=== PATIENT | male | born 1955 | race Hispanic/Latino ===

== ENCOUNTER 2019-09-27 09:30 | Outpatient (RCR) | payer OTHER, SELFPAY ==
--- NOTE | 2019-06-29 13:56 | PTOPEVAL ---
PHYSICAL THERAPY EVALUATION AND PLAN OF CARE Thank you for referring this patient to [facility]. Chente will be scheduled 2x/week for 4 weeks. Please review, sign, date and return this plan of care NIRANJAN. I agree with and certify that the following plan of care is medically necessary. 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 His daughter is translating for him. He did inpatient rehab for 1 month, then started outpatient therapy in 10/2018 at [facility]. They are no longer taking his insurance; therefore, he has come to see us. He has increased tone in RUE/LE and uses a brace at home to stretch the knee and gastroc. He states that his right LE is numb all the way down. Prior Level of Function Activity Level (Last 3 Months) Hand Dominance Right Activity of Daily Living Ability Needs Some Help Indoor/Home Mobility Independent Community Mobility Needs Some Help Stairs Ability Needs Some Help Medications Home Meds (Include: OTC, RX, Vitamins, oxycodone; blood thinner Herbals, Dose, Route,and Frequency) Query Text:Home Med Entries Will No Longer Recall From Past Visits. Home Meds Must Be Re-entered With Each Visit. Home Setting Home Type House Environmental Barriers Railing, Bilateral,Stairs, 2-4 Mobility Assistive Devices (Used Last 3 Cane, Small Based Quad Months) Pain Assessment Timing of Pain Assessment 0/10 in LE Hip Strength Right Hip Flexion Strength 2+ Poor + Hip Extension Strength 3 Fair Hip Abduction Strength 3- Fair - Hip Adduction Strength 4+ Good + Knee Strength Right Knee Flexion Strength 3- Fair - Knee Extension Strength 3- Fair - Reflexes Loc
--- NOTE | 2019-06-29 14:52 | OTOPEVAL ---
OT INITIAL EVALUATION 06/29/19 Thank you for referring this patient to [facility]. Skilled OT is recommended 2x/week for 4 weeks. Please review, sign, date and return this plan of care NIRANJAN. I agree with and certify that the following plan of care is medically necessary. Referring Physician Date Attending Provider: Berta Rodríguez NP *OT Outpatient Evaluation Start: 06/29/19 13:52 Freq: Status: Active Protocol: Document 06/29/19 13:56 REBEKAH (Rec: 06/29/19 14:44 REBEKAH [email or web address]) Therapy Assessment Status Assessment Status Assessment Status Evaluation Outpatient Past Medical History Neurological History Hx Cerebrovascular Accident (CVA) Yes: Jul 2018 Cardiovascular History Hx Hypercholesterolemia Yes Respiratory History Hx Pneumonia Yes: re-current as of 06/29/19 Endocrine History Hx Diabetes Yes: medication Other History Hx Cancer Yes: lung cancer Hx Chemotherapy Yes Evaluation Information Problem Diagnosis CVA, left 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 His daughter is translating for him as he is Estonian-speaking only. He did inpatient rehab for 1 month, then started outpatient therapy in 10/2018 at [facility]. They are no longer taking his insurance therefore, he has come to see us. He has increased tone in RUE/LE. Prior Level of Function Activity Level (Last 3 Months) Hand Dominance Right Activity of Daily Living Ability Needs Some Help Indoor/Home Mobility Independent Stairs Ability Needs Some Help Functional Cognition (Planning, Shopping Needs Some Help , Taking Medications) Cooking No Cleaning No Laundry No Shopping No Driving No Home Setting Home Type House Environmental Barriers Railing, Bilateral,Stairs, 2-4 Mobility Assistive Devices (Used Last 3 Cane, Small Based Quad Months) Comments Additional Prior Level of Function Chente lives with his daughter Comments and . They have been assisting him with ADLs. Dressing - only assist with
--- NOTE | 2019-08-03 12:49 | OTOPEVAL ---
OCCUPATIONAL THERAPY RE-EVALUATION + PROGRESS NOTE 08/03/2019 Thank you for referring this patient to [facility]. As noted below, pt would benefit from continue outpatient skilled OT to continue increasing functional independence. Recommending pt attend skilled OT 2x/week for 4 weeks. Please review, sign, date and return this plan of care NIRANJAN. I agree with and certify that the following plan of care is medically necessary. Referring Physician Date Attending Provider: DIO,KENDRICK CODING COMPLIANCE MANAGER *OT Outpatient Re-Evaluation Evaluation Information Problem Diagnosis s/p CVA Onset Jul 2018 Additional Evaluation Detail Pt has been attending OP Occupational therapy for 4 weeks. OT has been addressing gross UE strength, coordination tasks, fine motor tasks, increasing AROM of UE in addition to decreasing tone in R UE arm in order to increase participation in functional ADLs including eating, dressing, pulling up pants during toileting. Pt is independent in all instructive materials at this time. Subjective Information Chente reports having increased Query Text:As Reported By Patient/ motion and strength in R UE Family arm and is now able to complete washing dishes at home in assition to it becoming easier to dress and don/doff socks. Pain Assessment Timing of Pain Assessment Timing of Pain Assessment Re-assessment Pain Scale Pain Scale Used Numeric (1 - 10) Self Report Pain Assessment Right Shoulder(s) Reported Pain Level 3 Other Pain Description heavy Current Pain Intensity 3 Lowest Pain Intensity 3 Greatest Pain Intensity 3 Pain Score Pain Score 3: Self Report Upper Extremity Range of Motion Scapular/ Shoulder Range of Motion Right Shoulder Flexion - Active 95 Shoulder Extension - Active 40 Shoulder Abduction - Active 75 Scapular/Shoulder Range of Motion Pain Limitations Scapular/Shoulder Range of Motion Eval (06/29/19) Comments - shoulder flexion increased 25* - Shoulder extension (no change) - Shoulder abduction increased 10* Elbow/Forearm Range of Motion Right Elbow Flexion -
--- NOTE | 2019-08-05 08:49 | PCPTNOTE ---
Patient called & cancelled scheduled appointment this date due to inclement weather.
--- NOTE | 2019-08-10 18:07 | PTOPEVAL ---
PHYSICAL THERAPY PLAN OF CARE UPDATE AND PROGRESS REPORT Thank you for referring this patient to [facility]. I recommend Chente continue PT 2x/week for 4 weeks. Please review, sign, date and return this plan of care NIRANJAN. I agree with and certify that the following plan of care is medically necessary. Referring Physician Date : Attending Provider: DIO,KENDRICK ROBINS Neurological History Hx Cerebrovascular Accident (CVA) Yes: Jul 2018 Cardiovascular History Hx Hypercholesterolemia Yes Endocrine History Hx Diabetes Yes: medication Other History Hx Cancer Yes: lung cancer Hx Chemotherapy Yes Evaluation Information Problem Diagnosis s/p CVA Onset Jul 2018 Additional Evaluation Detail 97.8degrees 96%SaO2 89bpm 141/79 Subjective Information Chente reports that he feels as Query Text:As Reported By Patient/ though he is improving - Family continues to have difficulty walking with weakness and inability to completely control right LE Pain Assessment Timing of Pain Assessment Timing of Pain Assessment Pre-Treatment Self Report Self Report Pain Level 0 Pain Score Pain Score 0: Self Report Lower Extremity Muscle Strength Testing Hip Strength Right Hip Flexion Strength 2+ Poor + Hip Extension Strength 3 Fair Hip Abduction Strength 3- Fair - Hip Adduction Strength 4+ Good + Knee Strength Right Knee Flexion Strength 3- Fair - Knee Extension Strength 3- Fair - Balance Assessment Mahan Balance Assessment Sitting to Standing Independent w/Hands Unsupported Stance Ability Supervision- 2 minutes Sitting Unsupported, Feet on Floor Safely- 2 minutes Standing to Sitting Assist, Control w/Hands Transfer Ability Safely, Hand Use Unsupported Stance- Eyes Closed Safely, 10 seconds Unsupported Stance- Feet Together Independent, 1 minute Reaching Forward while Standing Safely, 5 inches yard coupler Object From Floor Within 2 inches, Unable Look Behind Shoulder - Standing Turns Sideways Only Turning 360 Degrees Supervision/Verbal Cues Unsupported Stance, Alternating Feet on 2 Steps w/Minimum Assist Stair Unsupported Tandem Stance Assist to Step-15 seconds Unilateral Leg Stance Unable,assist to not fall MAHAN Balance Evaluation Total Score (/56 34 points) Time Up Go (TUG) Timed Up and Go Test (TUG) (Seconds) 24 Assistive Devices Cane, Small Base Quad 5 Time Sit to Stand Time in Seconds 26.09 5 Time Sit to Stand Commen
--- NOTE | 2019-09-07 09:49 | OTOPEVAL ---
OCCUPATIONAL THERAPY RE-EVALUATION REPORT 09/07/2019 Thank you for referring this patient to [facility]. As described below, Chente is making progress with functional ROM, strength, and coordination. He will benefit from continued skilled OT 2x/week for 4 weeks. Please review, sign, date and return this plan of care NIRANJAN. I agree with and certify that the following plan of care is medically necessary. Referring Physician Date Referring Provider: DIO,KENDRICK CANCER SPEC *OT Outpatient Re-aluation Evaluation Information Problem Diagnosis s/p CVA Onset Jul 2018 Additional Evaluation Detail Chente has been attending outpatient OT since 06/29/19 for residual right sided weakness, pain, and tone following CVA. Sessions include the use of moist heat to reduce pain and tone, manual therapy, AAROM, coordination activities, and HEP progression as he continues to make progress with ROM, strength, and functional use. Subjective Information Chente reports that he feels as Query Text:As Reported By Patient/ though he is improving - Family continues to have difficulty due to tone, however he is able to use the right hand to reach his head in the shower. He is unable to use a comb to brush his hair on the right side. Daughter reports that he is raising his arm higher, which allows him to use the RUE better for bathing and dressing tasks. Pain Assessment Timing of Pain Assessment Timing of Pain Assessment Re-assessment Pain Scale Pain Scale Used Numeric (1 - 10) Self Report Pain Assessment Right Shoulder(s) Reported Pain Level 4 Pain Description Aching Current Pain Intensity 4 Lowest Pain Intensity 0 Greatest Pain Intensity 4 Pain Score Pain Score 4: Self Report Additional Pain Score Comments Overall pain has decreased, evident by achieving 0/10 to 1 /10 after therapy sessions. He continues to have lateral shoulder pain consistent with impingement due to imbalance of muscles and reduced GH
--- NOTE | 2019-09-16 11:55 | PTOPEVAL ---
PHYSICAL THERAPY PLAN OF CARE UPDATE AND PROGRESS REPORT Thank you for referring this patient to [facility]. I recommend continuing physical therapy 2x/week for 4 weeks. Please review, sign, date and return this plan of care NIRANJAN. I agree with and certify that the following plan of care is medically necessary. Referring Physician Date Attending Provider: DIO,KENDRICK AUTOMOTIVE PAINTER HELPER Re-evaluation Evaluation Information Diagnosis s/p CVA Onset Jul 2018 Subjective Information Chente started using a muscle Query Text:As Reported By Patient/ relaxor 2 days ago and already Family states he feels looser. Chente reports pain only in his right shoulder. Pain Score Pain Score 0: Self Report Additional Pain Score Comments Pt stated he felt looser and had 0/10 pain at end of tx session. Hip Strength Right Hip Flexion Strength 3- Fair - Hip Extension Strength 3- Fair - Hip Abduction Strength 3 Fair Hip Adduction Strength 4+ Good + Knee Strength Right Knee Flexion Strength 3- Fair - Knee Extension Strength 3 Fair Balance Assessment Sitting to Standing Independent w/Hands Unsupported Stance Ability Supervision- 2 minutes Sitting Unsupported, Feet on Floor Safely- 2 minutes Standing to Sitting Safely, Minimal Hand Use Transfer Ability Safely, Hand Use Unsupported Stance- Eyes Closed Safely, 10 seconds Unsupported Stance- Feet Together Independent, 1 minute Reaching Forward while Standing Safely, 5 inches milling general superintendent Object From Floor Supervision Look Behind Shoulder - Standing Shifts Weight Unilateral Turning 360 Degrees Turns slowly, but safely Unsupported Stance, Alternating Feet on 2 Steps w/Minimum Assist Stair Unsupported Tandem Stance Small Step- 30 seconds Unilateral Leg Stance Lifts Leg/Unable to Hold MAHAN Balance Evaluation Total Score (/56 40 points) Comments 1month ago: 34/56 Time Up Go (TUG) 29seconds Assistive Devices Cane, Small Base Quad Comments 24seconds 1 month ago 5 Time Sit to Stand Time in Seconds 25.09 5 Time Sit to Stand Comments use left UE on arm rail; 1 Query Text:Normative Data: If Greater month ago: 26 seconds; 2 month Than 15 Seconds, 74% Increase Risk for ago = 22.65seconds Recurrent Falls Gait Assessment 2 Minute Walk 146ft Number of Breaks Required 0 2 Minute Walk Test Comments 1month ago: 145ft; SaO2=94% while walking; max HR while walking was 116bpm; after 7
--- NOTE | 2019-09-28 09:45 | PCPTNOTE ---
This treatment is being continued on visit number [id number]. Please see documentation on both accounts to view progress. Completed interventions, outcomes, and problems have been marked as Inactive to facilitate the copying of the Care plan routine for recurring accounts.
== END 2019-09-27 23:59 | disposition home or self-care (01) ==
LOC: ANHPT 09:30
PROVIDERS: PCP Nurse Practitioner Family; Visit Provider Nurse Practitioner Family
DX: R25.9 Unspecified abnormal involuntary movements (principal); I69.398 Other sequelae of cerebral infarction; I63.50 Cerebral infarction due to unspecified occlusion or stenosis of unspecified cerebral artery; R53.1 Weakness
CPT/HCPCS: 97014; 97110; 97112; 97116; 97140; 97162; 97165; 97530; G0283

== ENCOUNTER 2019-10-05 12:41 | Outpatient (RCR) | payer OTHER, SELFPAY ==
--- NOTE | 2019-09-28 09:46 | PCPTNOTE ---
The treatment documented on this account is a continuation of the treatment documented on visit number [id number]. Please see documentation on both accounts to view progress. The Plan of Care has been transitioned and updated within the new V#. I have addressed and agree with the discipline specific Problems, Interventions, and Goals for the current certification period. Completed interventions, outcomes, and problems have been marked as Inactive to facilitate the copying of the Care plan routine for recurring accounts.
--- NOTE | 2019-10-05 15:48 | PCPTNOTE ---
Patient called & cancelled scheduled appointment this date due to COVID-19 precautions.
--- NOTE | 2019-10-11 12:43 | OTOPEVAL ---
OCCUPATIONAL THERAPY DISCHARGE NOTE 10/11/2019 Due to recent events regarding the COVID-19 Pandemic, Chente Pan has decided to cancel his remaining appointments. He plans to continue his home exercise program for now and will benefit from continued therapy when medically safe for him to be out in the community again. D/C today with goals not addressed. Thank you for referring this patient to [facility]. Please review, sign, date and return this discharge note NIRANJAN. I agree with and certify that the following plan of care is medically necessary. Referring Physician Date Admitting Provider: Attending Provider: DIO,KENDRICK ROBINS Referring Provider:
--- NOTE | 2019-10-12 08:28 | PCPTNOTE ---
PHYSICAL THERAPY DISCHARGE NOTE Attending Provider: DIO,KENDRICK MED SPECIALIST Patient:Chente Anglin Date of :1955 Due to recent events regarding the COVID-19 Pandemic, Chente Pan has decided to cancel his remaining appointments. He plans to continue his home exercise program for now and will benefit from continued therapy when medically safe for him to be out in the community again. D/C today with goals not addressed. Thank you for referring this patient to [facility]. Please review, sign, date and return this discharge summary NIRANJAN. I have been updated about the patient's current status and I agree with discharge from the above service at this time. Referring Physician Date
== END 2019-10-13 10:42 | disposition home or self-care (01) ==
LOC: ANHOT 12:41
PROVIDERS: PCP Nurse Practitioner Family; Visit Provider Nurse Practitioner Family
DX: R25.9 Unspecified abnormal involuntary movements (principal); I69.398 Other sequelae of cerebral infarction; I63.50 Cerebral infarction due to unspecified occlusion or stenosis of unspecified cerebral artery; R53.1 Weakness
CPT/HCPCS: 99199

== ENCOUNTER 2020-04-14 13:30 | Outpatient (RCR) | payer OTHER, SELFPAY ==
--- NOTE | 2020-01-18 11:40 | PTOPEVAL ---
PHYSICAL THERAPY EVALUATION AND PLAN OF CARE Thank you for referring Chente Anglin to [facility]. I recommend Chente participate in physical therapy 2x/week for 4 weeks. Please review, sign, date and return this plan of care NIRANJAN. I agree with and certify that the following plan of care is medically necessary. Referring Physician Date Attending Provider: KENDRICK WHARTON, BASKET GRADER Evaluation Diagnosis CVA Onset 07/2018 Subjective Information Chente has returned for further Query Text:As Reported By Patient/ skilled PT following a hiatus Family due to COVID-19 and appropriate precautious. While on break, his daughter states she has been walking with him outside. He is walking ~1hour at a time. Daughter states that he showers on his own with a shower chair now. Also reports that he is able to heat up a plate of foot in the microwave if it is put together for him. He reports that he will sometimes due to dishes. Chente's biggest complaint right now is that his right thight and shoulder are very tight and uncomfortable. No pain to speak of. Self Report Pain Level 0 Lower Extremity Muscle Strength Testing Hip Strength Right Hip Flexion Strength 4- Good - Hip Extension Strength 3- Fair - Hip Abduction Strength 3- Fair - Knee Strength Right Knee Flexion Strength 4- Good - Knee Extension Strength 4- Good - Muscle Length Testing Muscle Length Testing Left Hamstring Length -40 Query Text:(90 - 90 Position) Right Hamstring Length -45 Query Text:(90 - 90 Position) Gastrocnemius Length (L) Moderate Tightness,(R) Severe Tightness Balance Assessment Cohn Balance Assessment Sitting to Standing Independent w/Hands Unsupported Stance Ability Safely- 2 minutes Sitting Unsupported, Feet on Floor Safely- 2 minutes Standing to Sitting Safely, Minimal Hand Use Transfer Ability Safely, Hand Use Unsupported Stance- Eyes Closed Safely, 10 seconds Unsupported Stance- Feet Together Independent, 1 minute Reaching Forward while Standing Safely, 5 inches liquor stores and agencies supervisor Object From Floor Supervision Look Behind Shoulder - Standing Shifts Weight Unilateral Turning 360 Degrees Turns slowl
--- NOTE | 2020-02-15 16:04 | PTOPEVAL ---
PHYSICAL THERAPY PLAN OF CARE UPDATE AND PROGRESS REPORT Thank you for referring Chente Anglin to [facility]. I recommend continuing 2x/week for 4 weeks. Please review, sign, date and return this plan of care NIRANJAN. I agree with and certify that the following plan of care is medically necessary. Referring Physician Date Attending Provider: KENDRICK WHARTON, INCINERATOR PLANT LABORER Progress Outpatient Past Medical History Neurological History Hx Cerebrovascular Accident (CVA) Yes: Jul 2018 Cardiovascular History Hx Hypercholesterolemia Yes Respiratory History Hx Pneumonia Yes: re-current as of 06/29/19 Endocrine History Hx Diabetes Yes: medication Other History Hx Cancer Yes: lung cancer Hx Chemotherapy Yes Evaluation Information Problem Diagnosis CVA Onset 07/2018 Subjective Information Chente reports nothing new. Query Text:As Reported By Patient/ continues to report right Family shoulder and thigh tightness. Pain Assessment Timing of Pain Assessment Timing of Pain Assessment Pre-Treatment Self Report Self Report Pain Level 0 Pain Score Pain Score 0: Self Report Additional Pain Score Comments no c/o pain, really stiff today Balance Assessment Cohn Balance Assessment 44/56 Comments 01/17/2020: 41/56 Time Up Go (TUG) Timed Up and Go Test (TUG) (Seconds) 25 Assistive Devices Cane, Small Base Quad Comments 01/17/2020: 29seconds 5 Time Sit to Stand Time in Seconds 19.05 5 Time Sit to Stand Comments with left arm rail Query Text:Normative Data: If Greater 01/17/2020: 19.78 Than 15 Seconds, 74% Increase Risk for Recurrent Falls Gait Assessment 2 Minute Walk Total Distance Walked (feet) 178 2 Minute Walk Gait Speed Score (feet/ 1.48 second) Number of Breaks Required 0 2 Minute Walk Test Comments 01/17/2020: 157ft, 1.3ft/second PT Clinical Summary Chente is a 64 yo male presenting to outpatient physical therapy demonstrating imrpoved gait speed as well as Cohn Balance Assessment. We will continue PT to address gait and balance deficits as well as address HEP. PT Services Indicated Yes Rehabilitation Potential Fair Potential Barriers to Goal Achievements Severity of Condition, Unrealistic Expectations Support Requirements For Optimal Family [place] Patient/Caregiver Informed of Benefits/ Yes Risks of
--- NOTE | 2020-02-24 11:50 | OTOPEVAL ---
OCCUPATIONAL THERAPY INITIAL EVALUATION 02/24/2020 Thank you for referring Chente Anglin to [facility].? The Pt would benefit from skilled outpatient OT 2x/week for 4 weeks. Please review, sign, date and return this plan of care NIRANJAN. I agree with and certify that the following plan of care is medically necessary. Referring Physician Date Attending Provider: KENDRICK WHARTON, CIGAR MAKING MACHINE OPERATOR *OT Outpatient Evaluation Start: 02/24/20 11:00 Freq: Status: Active Protocol: Document 02/24/20 11:00 KJL (Rec: 02/24/20 11:50 KJL [id number]) Therapy Assessment Status Assessment Status Assessment Status Evaluation Outpatient Past Medical History Neurological History Hx Cerebrovascular Accident (CVA) Yes: Jul 2018 Cardiovascular History Hx Hypercholesterolemia Yes Respiratory History Hx Pneumonia Yes: re-current as of 06/29/19 Endocrine History Hx Diabetes Yes: medication Other History Hx Cancer Yes: lung cancer Hx Chemotherapy Yes Evaluation Information Problem Diagnosis CVA Onset 07/2018 Additional Evaluation Detail Pt experienced CVA resulting in R UE weakness Subjective Information Per patient's daughter, who is Query Text:As Reported By Patient/ conference translator, pt has pain in R Family UE shoulder, tighness in elbow , wrist, and hand upon waking in the morning. Pt has difficultie with dressing inlcuding donning/doffing shirts, bathing. Prior Level of Function Activity Level (Last 3 Months) Hand Dominance Right Activity of Daily Living Ability Independent Indoor/Home Mobility Independent Community Mobility Independent Stairs Ability Independent Functional Cognition (Planning, Shopping Independent , Taking Medications) Cooking Yes Cleaning Yes Laundry Yes Shopping Yes Driving Yes Pain Assessment Timing of Pain Assessment Timing of Pain Assessment Assessment Pain Scale Pain Scale Used Numeric (1 - 10) Self Report Pain Assessment Right Shoulder(s) Reported Pain Level 7 Pain Description Sharp Lowest Pain Intensity 6 Pain Aggravating Factors Prolonged Position Pain Score Pain Score 7: Self Report Upper Extremity Range of Motion General Upper Extremity Range of Motion Reason Not Measured WNL/Left Scapular/ Shoulder Range of Motion Right Shoulder Flexion - Active
--- NOTE | 2020-02-24 13:19 | PCPTNOTE ---
Patient called & cancelled scheduled appointment this date for PT as they did not realize there was a gap between PT and OT appointments and his ride had other obligations.
--- NOTE | 2020-02-28 14:01 | PCPTNOTE ---
Patient called & cancelled scheduled appointments on 02/28 and 03/02 due to exposure to COVID-19. Patient is being tested on 02/28.
[2020-03-23 10:00] VITALS: BP_SYST 100
--- NOTE | 2020-03-23 11:03 | OTOPEVAL ---
OP OCCUPATIONAL THERAPY RE-EVALUATION: 03/23/2020 Thank you for referring Chente Anglin to [facility].? The patient is scheduled to be seen for therapy?2 x/week for 4 weeks. Please review, sign, date and return this plan of care NIRANJAN. I agree with and certify that the following plan of care is medically necessary. 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 Pain Assessment Timing of Pain Assessment Timing of Pain Assessment Assessment Pain Scale Pain Scale Used Numeric (1 - 10) Self Report Pain Assessment Right Shoulder(s) Reported Pain Level 5 Pain Score Pain Score 5: Self Report Upper Extremity Range of Motion General Upper Extremity Range of Motion Reason Not Measured WNL/Left Scapular/ Shoulder Range of Motion Right Reason Not Measured WNL/Left Shoulder Flexion - Active 100 Shoulder Extension - Active 70 Shoulder Abduction - Active 90 Shoulder Abduction - Passive 100 Scapular/Shoulder Range of Motion Pt improved AROM of shoulder Comments flexion from 90 degrees to 100 degrees and shoulder extension from 60 degrees to 70 degrees. Elbow/Forearm Range of Motion Right Reason Not Measured WNL/Left Elbow Flexion - Active 105 Elbow Flexion - Passive 110 Elbow Extension - Active -20 Elbow Extension - Passive -5 Forearm Supination - Active 75 Forearm Supination - Passive 85 Forearm Pronation - Active 75 Forearm Pronation - Passive 90 Elbow/Forearm Range of Motion Comments Pt improved elbow flexion AROM from 70 degrees to 105 degrees, PROM from 75 degrees to 110 degrees. Pt improved elbow extension AROM from -30 degrees to -20 degrees, PROM from -15 degrees to -5 degrees
--- NOTE | 2020-03-29 16:21 | PTOPEVAL ---
PHYSICAL THERAPY PLAN OF CARE UPDATE AND PROGRESS REPORT Thank you for referring Chente Anglin to [facility].? The patient is scheduled to be seen for therapy? 2x/week for 4 weeks. Please review, sign, date and return this plan of care NIRANJAN. I agree with and certify that the following plan of care is medically necessary. 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 He is also emptying grocery bags in the kitchen if someone else brings them in the house. Pain Score Pain Score 0: Self Report Additional Pain Score Comments no pain, but leg is tight- hip and knee R; daughter present to interpret for pt; Transfer Assessment Floor Transfer Assessment Floor Transfer Destination Mat Stand to Floor Transfer Ability Contact Guard Floor to Stand Transfer Ability Minimum Assistance X 1 Floor Transfer Ability Minimum Assistance X 1 Floor Transfer Comments with gait belt, patient faced mat table and placed hands on mat table to lower self through half kneeling and rise self through half kneeling Balance Assessment Mahan Balance Assessment Sitting to Standing Independent w/out Hands Unsupported Stance Ability Safely- 2 minutes Sitting Unsupported, Feet on Floor Safely- 2 minutes Standing to Sitting Safely, Minimal Hand Use Transfer Ability Safely, Minimal Hand Use Unsupported Stance- Eyes Closed Safely, 10 seconds Unsupported Stance- Feet Together Independent, 1 minute Reaching Forward while Standing Safely, 5 inches billposting 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
--- NOTE | 2020-04-18 08:22 | PCOTNOTE ---
This treatment is being continued on visit number [id number]. Please see documentation on both accounts to view progress. Completed interventions, outcomes, and problems have been marked as Inactive to facilitate the copying of the Care plan routine for recurring accounts.
--- NOTE | 2020-04-18 16:28 | PCPTNOTE ---
This treatment is being continued on visit number [id number]. Please see documentation on both accounts to view progress. Completed interventions, outcomes, and problems have been marked as Inactive to facilitate the copying of the Care plan routine for recurring accounts.
== END 2020-04-17 23:59 | disposition home or self-care (01) ==
LOC: ANHPT 13:30
PROVIDERS: PCP Nurse Practitioner Family; Visit Provider Nurse Practitioner Family
DX: I63.50 Cerebral infarction due to unspecified occlusion or stenosis of unspecified cerebral artery (principal); R53.1 Weakness
CPT/HCPCS: 97110; 97140; 97162; 97165; 97168

== ENCOUNTER 2020-05-30 11:00 | Outpatient (RCR) | payer OTHER, SELFPAY ==
[2020-04-18 00:03] VITALS: BP_SYST 100
--- NOTE | 2020-04-18 08:21 | PCOTNOTE ---
The treatment documented on this account is a continuation of the treatment documented on visit number [id number]. Please see documentation on both accounts to view progress. The Plan of Care has been transitioned and updated within the new V#. I have addressed and agree with the discipline specific Problems, Interventions, and Goals for the current certification period. Completed interventions, outcomes, and problems have been marked as Inactive to facilitate the copying of the Care plan routine for recurring accounts.
--- NOTE | 2020-04-18 16:28 | PCPTNOTE ---
The treatment documented on this account is a continuation of the treatment documented on visit number [id number]. Please see documentation on both accounts to view progress. The Plan of Care has been transitioned and updated within the new V#. I have addressed and agree with the discipline specific Problems, Interventions, and Goals for the current certification period. Completed interventions, outcomes, and problems have been marked as Inactive to facilitate the copying of the Care plan routine for recurring accounts.
[2020-05-04 10:08] VITALS: BP_SYST 110
--- NOTE | 2020-05-04 10:49 | OTOPEVAL ---
Addendum entered by Matthew Sanchez, ROBINR/Jorge L, CHT 05/04/20 11:57: Edit to below frequency and duration: The patient is scheduled to be seen for continued occupational therapy 1x/week for 4 weeks. Patient to begin to taper from therapy to increase activity at home. Original Note: OT RE-EVALUATION AND PROGRESS REPORT 05/04/2020 Thank you for referring Chente Anglin to [facility].? The patient is scheduled to be seen for continued occupational therapy? 2x/week for 4 weeks. Please review, sign, date and return this plan of care NIRANJAN. I agree with and certify that the following plan of care is medically necessary. 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 Pain Assessment Timing of Pain Assessment Timing of Pain Assessment Re-assessment Pain Scale Pain Scale Used Numeric (1 - 10) Self Report Pain Assessment Right Shoulder(s) Reported Pain Level 3 Pain Description Aching,Dull Pain Score Pain Score 3: Self Report Interventions Used Interventions Used By Clinicians Education Pain reduced from 5/10 Upper Extremity Range of Motion Scapular/ Shoulder Range of Motion Right Shoulder Flexion - Active 90 Shoulder Flexion - Passive 120 Shoulder Extension - Active 60 Shoulder Abduction - Active 90 Shoulder Abduction - Passive 110 Shoulder Lateral Rotation - Active Patient is able to reach the Query Text:Reach Behind the Head top of his head and is now able to use the right hand to help wash his hair in the shower. Scapular/Shoulder Range of Motion He continues to have Comments difficulties using the right hand to dry his head and back after the shower. Improved PROM into flexion and abduction also. Elbow/Forearm Range of Motion Right Elbow Flexion - Active 130 Elbow Extension - Active -15 Elbow Extension - Passive 0 Forearm Supination - Active 75 Forearm Supination - Passive 90 Forearm Pronation - Active 75 Forearm Pronation - Passive 90 Wrist Range of Motion Right Wrist Flexion - Active 30 Wrist Extensio
--- NOTE | 2020-05-04 16:11 | PTOPEVAL ---
PHYSICAL THERAPY PLAN OF CARE UPDATE AND PROGRESS REPORT Thank you for referring Chente Anglin to [facility].? The patient is scheduled to be seen for therapy?1x/week for 4 weeks. Please review, sign, date and return this plan of care NIRANJAN. I agree with and certify that the following plan of care is medically necessary. 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 when asked about home exercise routine, it was noticed he wakes up and stretches, has breakfast and does the dishes, uses a small pedal bike, uses the pulleys, and when his comes home he uses a stationary bike. On nice days he will go outisde and and will sometimes go to [employer] to walk around the store. Overall states he does at least 15minutes of activity every hour for at least 8 hours out of his awake time. Pain Score Pain Score 0: Self Report Balance Assessment Mahan Balance Assessment Sitting to Standing Independent w/out Hands Unsupported Stance Ability Safely- 2 minutes Sitting Unsupported, Feet on Floor Safely- 2 minutes Standing to Sitting Safely, Minimal Hand Use Transfer Ability Safely, Minimal Hand Use Unsupported Stance- Eyes Closed Safely, 10 seconds Unsupported Stance- Feet Together Independent, 1 minute Reaching Forward while Standing Safely, 5 inches prepress supervisor Object From Floor Independent/Safe Look Behind Shoulder - Standing Shifts Weight Unilateral Turning 360 Degrees Turns slowly, but safely Unsupported Stance, Alternating Feet on (I)- 8 Steps in > 20 secs Stair Unsupported Tandem Stance Holds Tandem- 30 seconds Unilateral Leg Stance Lifts Leg/Unable to Hold MAHAN Balance Evaluation Total Score (/56 47 points) Comments 03/29/2020: 45/56 02/15/2020: 44/56 01/17/2020: 41/56 Time Up Go (TUG) Timed Up and Go Test (TUG) (Seconds) 19 Assistive Devices Gabriela Muller Ba
--- NOTE | 2020-05-12 13:50 | PCOTNOTE ---
Patient called & cancelled scheduled appointment this date due to having no transportation.
--- NOTE | 2020-05-12 14:41 | PCPTNOTE ---
Patient called & cancelled scheduled appointment this date due to no transportation
--- NOTE | 2020-05-30 10:44 | OTOPEVAL ---
OCCUPATIONAL THERAPY RE-EVALUATION AND D/C SUMMARY 05/30/2020 Thank you for referring Chente Anglin to [facility].? At this time the patient is showing a functional progress plateau with right UE strength, AROM, coordination, and use. He is currently independent with all home exercises. Discharging today with HEP. Please review, sign, date and return this discharge NIRANJAN. I agree with and certify that the following plan of care is medically necessary. 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 He continues to have shoulder pain every morning, but after he goes through his stretching and strengthening routine for the right UE the pain reduces. They report that he does exercises 3 times/day . Pain Assessment Timing of Pain Assessment Timing of Pain Assessment Re-assessment Pain Scale Pain Scale Used Numeric (1 - 10) Self Report Pain Assessment Right Shoulder(s) Reported Pain Level 5 Pain Description Aching,Tightness Lowest Pain Intensity 0 Greatest Pain Intensity 5 Pain Score Pain Score 5: Self Report Interventions Used Interventions Used By Clinicians Rest Upper Extremity Range of Motion Scapular/ Shoulder Range of Motion Right Shoulder Flexion - Active 90 Shoulder Extension - Active 55 Shoulder Abduction - Active 90 Shoulder Medial Rotation - Active Pt is able to reach lateral Query Text:Reach Behind the Back aspect of the iliac crest Shoulder Lateral Rotation - Active Pt is able to reach the top of Query Text:Reach Behind the Head his head Scapular/Shoulder Range of Motion No change in AROM of the right Comments shoulder since last reassess. Elbow/Forearm Range of Motion Right Elbow Flexion - Active 125 Elbow Extension - Active -20 Elbow Extension - Passive 0 Forearm Supination - Active 65 Forearm Pronation - Active 75 Elbow/Forearm Range of Motion Comments No change in AROM of the right elbow/forearm since last reassess. Wrist Range of Motion Right Wrist Flexion - Active 30 Wrist Extension - Active 40 Wrist Range of Motion Comments No change in AROM of the right
--- NOTE | 2020-05-30 11:40 | PTOPEVAL ---
PHYSICAL THERAPY DISCHARGE NOTE Thank you for referring Chente Anglin to [facility].? Please review, sign, date and return this plan of care NIRANJAN. I agree with and certify that the following plan of care is medically necessary. 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 He does heel raises, squats, stretches , and bicycle at home. He does the dishes at home and other chores. Biggest complaint continues to be the tightness in the leg. They did up the dose of bacolfen and are trying to get botox approved through insurance. Pain Assessment Timing of Pain Assessment Timing of Pain Assessment Re-assessment Self Report Self Report Pain Level 0 Pain Score Pain Score 0: Self Report Additional Pain Score Comments Post tx, pain reduced to 0/10 Balance Assessment Mahan Balance Assessment Sitting to Standing Independent w/out Hands Unsupported Stance Ability Safely- 2 minutes Sitting Unsupported, Feet on Floor Safely- 2 minutes Standing to Sitting Safely, Minimal Hand Use Transfer Ability Safely, Minimal Hand Use Unsupported Stance- Eyes Closed Safely, 10 seconds Unsupported Stance- Feet Together Independent, 1 minute Reaching Forward while Standing Confidently, 10 inches road freight brake coupler Object From Floor Independent/Safe Look Behind Shoulder - Standing Shifts Weight Unilateral Turning 360 Degrees Turns slowly, but safely Unsupported Stance, Alternating Feet on (I)- 8 Steps in > 20 secs Stair Unsupported Tandem Stance Holds Tandem- 30 seconds Unilateral Leg Stance Lifts Leg/Unable to Hold MAHAN Balance Evaluation Total Score (/56 48 points) Comments
== END 2020-07-03 10:03 | disposition home or self-care (01) ==
LOC: ANHPT 11:00
PROVIDERS: PCP Nurse Practitioner Family; Visit Provider Nurse Practitioner Family
DX: I63.50 Cerebral infarction due to unspecified occlusion or stenosis of unspecified cerebral artery (principal); R53.1 Weakness
CPT/HCPCS: 97110; 97112; 97116; 97140; 97530

== ENCOUNTER 2020-06-23 06:57 | Outpatient (NON) | payer SELFPAY ==
[2020-06-23 23:21] LABS: SARS-CoV-2 RNA PCR Negative
== END 2020-06-23 06:58 ==
PROVIDERS: PCP Nurse Practitioner Family; Visit Provider Nurse Practitioner Family
DX: R06.2 Wheezing (principal); Z20.828 Contact with and (suspected) exposure to other viral communicable diseases
CPT/HCPCS: 87635; C9803; U0003

== ENCOUNTER 2021-06-01 09:30 | Outpatient (RCR) | payer MEDICARE, MEDICAID, SELFPAY ==
--- NOTE | 2021-04-26 09:31 | OTOPEVAL ---
OCCUPATIONAL THERAPY INITIAL EVALUATION REPORT 04/26/21 Thank you for referring Chente Anglin to [facility].? The patient is scheduled to be seen for therapy? 2x/week for 5 weeks. Please review, sign, date and return this plan of care NIRANJAN. I agree with and certify that the following plan of care is medically necessary. 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 He is here today with his daughter who helps translate as he is English- speaking. He reports he would like to increase the flexibility of the arm and reduce his shoulder pain. Prior Level of Function Activity Level (Last 3 Months) Hand Dominance Right Activity of Daily Living Ability Independent Indoor/Home Mobility Independent Comments Additional Prior Level of Function Patient is independent/ Comments modified independent with ADLs . Daughter states he sometimes needs help donning socks. Pain Assessment Timing of Pain Assessment Timing of Pain Assessment Assessment Pain Scale Pain Scale Used Numeric (1 - 10) Self Report Pain Assessment Right Shoulder(s) Reported Pain Level 5 Pain Description Sharp Pain Score Pain Score 5: Self Report Interventions Used Interventions Used By Clinicians Education,Exercise Pain Relief Interventions Used By Heat,Medication Patient Upper Extremity Range of Motion Scapular/ Shoulder Range of Motion Right Scapular: Retraction Hypomobile Scapular: Protraction Hypomobile Scapular Downward Rotation Hypomobile Scapular Upward Rotation Hypomobile Shoulder Flexion - Active 70 Shoulder Extension - Active 35 Shoulder Abduction - Active 70 Shoulder Medial Rotation - Acti
--- NOTE | 2021-04-26 12:25 | PTOPEVAL ---
Thank you for referring Chente Anglin to [facility].? The patient is scheduled to be seen for therapy?2 x/week for 5 weeks. Please review, sign, date and return this plan of care NIRANJAN. I agree with and certify that the following plan of care is medically necessary. 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 He is here today with his daughter who helps translate as he is Faroese- speaking. He walk around the house daily with the [employer] and will go to the store for distance walking. He performs theraband exercises daily. He uses a stretching strap at home. Pain Assessment Right Hip(s) Reported Pain Level 5 Pain Description Sharp Pain Frequency Chronic,Continuous Lowest Pain Intensity 5 Greatest Pain Intensity 6 Lower Extremity Range of Motion Hip Range of Motion Right Hip Flexion Range of Motion - Active 60 Hip Flexion Range of Motion - Passive 90 Hip Extension Range of Motion - Active 5 Hip Abduction Range of Motion - Passive 18 Hip Medial Rotation - Passive 0 Hip Range of Motion Limitations Muscle Length Restriction, Muscle Tone,Muscle Weakness Knee Range of Motion Right Knee Flexion Range of Motion - Active 85 Knee Flexion Range of Motion - Passive 120 Knee Extension Range of Motion - Active -5 Knee Extension Range of Motion - Passive 0 Knee Range of Motion Limitations Muscle Tone,Muscle Weakness Ankle/Foot Range of Motion Right Ankle Dorsiflexion With Knee Extension -35 - Active Ankle Dorsiflexion With Knee Extension -30 - Passive Ankle/Toe Range of Motion Limitations Muscle Length Restriction, Muscle Tone Lower Extremity Muscle Strength Testing General Lower Extremity Strength Gross Lower Extremity Strength left LE in seated 4+/5 Hip Strength Right Hip Flexion Strength 2- Poor - Hip Extension Strength 2 Poor Hip Abduction Strength 2 Poor Knee Strength Right Knee Flexion Strength 2 Poor Knee Extension Strength 3- Fair - Ankle Strength Right Ankle Dorsiflexion Strength 2- Poor - Ankle Plantarflexion Strength 2- Poor - Ankle Eversion Strength 2- Poor - Ankle Inversion Strength 2- Poor - Upper Extremity Mu
--- NOTE | 2021-05-15 11:26 | PCPTNOTE ---
Patient called & cancelled scheduled appointment this date due having another appointment.
--- NOTE | 2021-06-01 09:19 | OTOPEVAL ---
OCCUPATIONAL THERAPY RE-EVALUATION REPORT AND DISCHARGE SUMMARY 06/01/21 Chente presents today for OT re-evaluation following 5 weeks of therapy that began a week after he received Botox injections to the right UE/LE. Patient continues to have moderate to severe tone that affects the functional use of the right UE. Some improvements noted in the flexibility of the shoulder, noting his ability to raise the arm by 30 more degrees. Unfortunately, the ROM of the elbow, forearm, wrist, and hand have remained unchanged since the start of care. Improvements in functional strength noted, however he continues to be limited with UE use due to tone and soft tissue contractures. Chente is currently independent with stretching and strengthening program for the UE. He verbalizes daily compliance with his exercises. He also has a resting hand splint for the right hand for night use. Plan to D/C today with patient independent with all materials. Thank you for referring Chente Anglin to [facility].? Please review, sign, date and return this D/C Note NIRANJAN. I agree with and certify that the following plan of care is medically necessary. 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 OT began 04/26/21 . Chente has participated in 10 outpatient OT sessions for right UE tightness, tone, and spasticity. Subjective Information He reports that the arm feels Query Text:As Reported By Patient/ more flexible and he is able Family to use the arm to help wash his hair. He reports no change in his shoulder pain. Noting that he wakes up every day with 5/10 pain in the shoulder . He continues to report shoulder and hand tightness. Pain Assessment Timing of Pain Assessment Timing of Pain Assessment Assessment Pain Scale Pain Scale Used Numeric (1 - 10) Self Report Pain Assessment Right Shoulder(s) Reported Pain Level 5 Pain Score Pain Score 5: Self Report Interventions Used Interventions Used By Clinicians Exercise,Heat Upper Extremity Range of Motion Scapular/ Shoulder Range of Motion Right Scapular: Retraction Hypomobile Scapular: Protraction Hypomobile Scapular Downward Rotation Hypomobile Scapular Upward Rotation Hypomobile Shoulder Flexion - Active 100 Shoulder Extension - Active 35 Shoulder Abduction - Active 80 Shoulder Medial Rotation - Active Unable to clear iliac alva
--- NOTE | 2021-06-01 11:27 | PTOPEVAL ---
Physical Therapy Discharge Summary Thank you for referring Chente Anglin to [facility] [place].? Chente has received 10 therapy visits to address LE impairments, decreased balance and decreased functional mobility. He has reached maximal potential will skilled therapy services at this time. He has partially achieved his therapy goals. Education has been provided for a HEP. Will DC skilled PT services at this time. Please review, sign, date and return this discharge summary NIRANJAN. I agree with and certify that the following plan of care is medically necessary. 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 Subjective Information He reports that the arm feels Query Text:As Reported By Patient/ more flexible and he is able Family to move the right leg more. States he is performing his HEP daily, but is unclear if that is for his UE or LE exercises. Unable to indicate which exercises he performs. Per family she encourages him to perform his exercises, but is not there consistently to remind him. Pain Assessment Right Hip(s) Reported Pain Level 5 Pain Score Lower Extremity Range of Motion Hip Range of Motion Right Hip Flexion Range of Motion - Active 100 Hip Flexion Range of Motion - Passive 100 Hip Extension Range of Motion - Active -5 Hip Extension Range of Motion - Passive -5 Hip Abduction Range of Motion - Active 20 Hip Abduction Range of Motion - Passive 25 Hip Medial Rotation - Passive 0 Hip Range of Motion Limitations Muscle Length Restriction, Muscle Tone,Muscle Weakness Hip Range of Motion Comments seated hip flex with trunk flex measured Knee Range of Motion Right Knee Flexion Range of Motion - Active 105 Knee Flexion Range of Motion - Passive 120 Knee Extension Range of Motion - Active -5 Knee Extension Range of Motion - Passive 0 Knee Range of Motion Limitations Muscle Tone,Muscle Weakness Ankle/Foot Range of Motion Right Ankle Dorsiflexion With Knee Extension -30 - Passive Ankle Plantarflexion Range of Motion - 50 Passive Ankle/Toe Range of Motion Limitations Muscle Length Restriction, Muscle Tone Lower Extremity Muscle Strength Testing Hip Strength Right Hip Flexion Strength 3 Fair Hip Extension Strength 2+ Poor + Hip Abduction Strength 2 Poor Knee Strength Rig
== END 2021-06-04 16:13 | disposition home or self-care (01) ==
LOC: ANHPT 09:30
PROVIDERS: PCP Nurse Practitioner Family
DX: R25.2 Cramp and spasm (principal)
CPT/HCPCS: 97110; 97140; 97163; 97165; 97530